=== PATIENT | male | born 1995 | race Caucasian/White ===

== ENCOUNTER 2017-04-06 15:59 | Emergency (ER) | payer BC, MEDICAID, OTHER ==
[2017-04-06] MEDS ORDERED: Ketorolac 60 MG/2 ML SDV IM ONE (16:28)
--- NOTE | 2017-04-06 16:45 | EDM.PDOC ---
ED HPI GENERAL MEDICAL PROBLEM - General Chief Complaint: Upper Extremity Injury/Pain Stated Complaint: PAIN RT HAND Time Seen by Provider: 04/06/17 16:09 Source of Information: Reports: Patient History Limitations: Reports: No Limitations - History of Present Illness INITIAL COMMENTS - FREE TEXT/NARRATIVE: Presents reporting that he was helping a friend move a metal box that weighed about 50 pounds last evening when the box accidentally dropped on his right wrist. He has some pain at the time but this morning was able to mow lawns with a push mower. 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 By the time he finished his mowing the pain in his right wrist was excruciating. He thus presents for evaluation. right hand Pain Score (Numeric/FACES): 8 - Related Data Allergies Allergy/AdvReac Type Severity Reaction Status Date / Time acetaminophen Allergy Hives Verified 04/06/17 16:36 Home Meds: Home Meds FLUoxetine [PROzac] 0 mg PO DAILY 04/06/17 [History] Past Medical History - Past Health History Medical/Surgical History: Denies Medical/Surgical History Musculoskeletal History: Reports: Other (See Below) Other Musculoskeletal History: phocomelia left arm Psychiatric History: Reports: Anxiety, Bipolar, Other (See Below) Other Psychiatric History: sleeping problems - Infectious Disease History Infectious Disease History: Reports: Chicken Pox Social & Family History - Family History Family Medical History: Noncontributory - Tobacco Use Smoking Status *Q: Current Every Day Smoker Years of Tobacco use: 7 Packs/Tins Daily: 1 Second Hand Smoke Exposure: Yes - Caffeine Use Caffeine Use: Reports: None - Recreational Drug Use Recreational Drug Use: No Drug Use in Last 12 Months: Yes Recreational Drug Type: Reports: Marijuana/Hashish Recreational Drug Use Frequency: Daily Review of Systems - Review of Systems Review Of Systems: ROS reveals no pertinent complaints other than HPI. ED EXAM, GENERAL - Physical Exam Exam: See Below Exam Limited By: No Limitations General Appearance: Alert, Mild Distress (due to wrist pain) Ears: Normal External Exam Nose: Normal Inspection Throat/Mouth: Normal Inspection Head: Atraumatic, Normocephalic Neck: Normal Inspection Respiratory/Chest: No Respiratory Distress, Lungs Clear, Normal Breath Sounds Cardiovascular: Normal Peripheral Pulses, Regular Rate, Rhythm, No Murmur GI/Abdominal: Soft Back Exam: Normal Inspection Extremities: Other (Right wrist with full ROM with hesitation due to pain. Full ROM of all digits except hesitation due to pain. No lesion, erythema, swelling, deformity. Exquisit tenderness. Congenitally absent/deformed left hand/wrist/forearm) Course - Vital Signs Last Recorded V/S: Last Vital Signs Temp 36.6 C 04/06/17 16:07 Pulse 120 H 04/06/17 16:07 Resp 22 H 04/06/17 16:07 BP 152/76 H 04/06/17 16:07 Pulse Ox 96 04/06/17 16:07 - Orders/Labs/Meds Meds: Medications Discontinued Medications Generic Name Dose Route Start Last Admin Trade Name Freq PRN Reason Stop Dose Admin Ketorolac Tromethamine 60 mg 04/06/17 16:28 04/06/17 16:36 Toradol IM 04/06/17 16:29 60 mg ONETIME ONE Administration Departure - Departure Time of Disposition: 17:26 Disposition: Home, Self-Care 01 Condition: Good Clinical Impression: Fx metacarpal Qualifiers: Encounter type: initial encounter Metacarpal bone: fifth Fracture type: closed Metacarpal location: base Fracture alignment: displaced Laterality: right Qualified Code(s): S62.316A - Displaced fracture of base of fifth metacarpal bone, right hand, initial encounter for closed fracture - Discharge Information Referrals: Kathy Kevin MD [Primary Care Provider] - [facility] [Outside] Forms: ED Department Discharge Additional Instructions: 1. Elevate right hand. Keep in splint and dry. Ice 20 minutes every 3-4 hours. 2. Call orthopedic clinic in am to be seen tomorrow. 3. Pain medication as needed--no driving or operating machinery.
--- NOTE | 2017-04-06 16:58 | CR ---
EXAMINATION: Right wrist HISTORY: Pain COMPARISON: None TECHNIQUE: 3 views FINDINGS/IMPRESSION: There is a minimally displaced intra-articular fracture involving the radial si de of the base of the fifth metatarsal extending into the CMC joint. Remaining osseous structures an d joint spaces appear intact. Bone mineralization is otherwise normal.
[2017-04-06 17:49] VITALS: BP 95/57
== END 2017-04-06 17:45 | disposition home or self-care (01) ==
LOC: MW.ED 15:59
DX: S62.316A Displaced fracture of base of fifth metacarpal bone, right hand, initial encounter for closed fracture (principal); F17.210 Nicotine dependence, cigarettes, uncomplicated; Z88.6 Allergy status to analgesic agent; Z79.899 Other long term (current) drug therapy; W20.8XXA Other cause of strike by thrown, projected or falling object, initial encounter
CPT/HCPCS: 73110; 96372; 99283; J1885

== ENCOUNTER 2017-05-02 18:37 | Emergency (ER) | payer MEDICAID ==
[2017-05-02] MEDS ORDERED: Ketorolac 30 MG/ML SDV IVPUSH ONE (19:14)
[2017-05-02] MEDS ORDERED: Sodium Chloride 0.9% 1,000 ML IV ONE ×2 (19:14→20:24)
[2017-05-02] MEDS ORDERED: Ondansetron 4 MG/2 ML SDV IVPUSH ONE (19:14)
--- NOTE | 2017-05-02 19:39 | EDM.PDOC ---
ED HPI GENERAL MEDICAL PROBLEM - General Chief Complaint: ENT Problem Stated Complaint: DIFFICULTY TALKING, FAINTING Time Seen by Provider: 05/02/17 18:38 Source of Information: Reports: Patient History Limitations: Reports: No Limitations - History of Present Illness INITIAL COMMENTS - FREE TEXT/NARRATIVE: History of present illness: [22-year-old male comes in complaining of periods of lightheadedness, and syncope. Patient indicates that he almost fell secondary to this patient also indicates that he slowly had a soreness and hoarseness in his throat that has evolved over the day.] Review of systems: As per history of present illness and below otherwise all systems reviewed and negative. Past medical history: As per history of present illness and as reviewed below otherwise noncontributory. Surgical history: As per history of present illness and as reviewed below otherwise noncontributory. Social history: No reported history of drug or alcohol abuse. Family history: As per history of present illness and as reviewed below otherwise noncontributory. Physical exam: HEENT: Atraumatic, normocephalic, pupils reactive, negative for conjunctival pallor or scleral icterus, mucous membranes moist with oral pharyngeal without white patchy exudate, throat clear, neck supple, nontender, trachea midline. Lungs: Clear to auscultation, breath sounds equal bilaterally, chest nontender. Heart: S1S2, regular, negative for clicks, rubs, or JVD. Abdomen: Soft, nondistended, nontender. Negative for masses or hepatosplenomegaly. Negative for costovertebral tenderness. Pelvis: Stable nontender. Genitourinary: Deferred. Rectal: Deferred. Extremities: Atraumatic, negative for cords or calf pain. Neurovascular unremarkable. Neuro: Awake, alert, oriented. Cranial nerves II through XII unremarkable. Cerebellum unremarkable. Motor and sensory unremarkable throughout. Exam nonfocal. Patient acknowledged that he had a significant amount of vomiting with nausea and dizziness. States that he has a couple met family members that have been ill with some sort of virus. After 2 L of normal saline patient's heart rate and blood pressure returned to normal limits Diagnostics: [CBC, CMP, lipase, amylase, troponin] Therapeutics: [IV fluid, Toradol] Impression: [Pharyngitis, dehydration, bradycardia] Plan: [Antibiotics follow-up with PCP] Definitive disposition and diagnosis as appropriate pending reevaluation and review of above. Throat Pain Score (Numeric/FACES): 7 - Related Data Allergies Allergy/AdvReac Type Severity Reaction Status Date / Time acetaminophen Allergy Hives Verified 05/02/17 18:50 Home Meds: Home Meds Amoxicillin/Potassium Clav [Augmentin 875-125 Tablet] 1 each PO BID #14 tablet 05/02/17 [Rx] Past Medical History - Past Health History Medical/Surgical History: Denies Medical/Surgical History Musculoskeletal History: Reports: Other (See Below) Other Musculoskeletal History: phocomelia left arm Psychiatric History: Reports: Anxiety, Bipolar, Other (See Below) Other Psychiatric History: sleeping problems - Infectious Disease History Infectious Disease History: Reports: Chicken Pox Social & Family History - Family History Family Medical History: Noncontributory - Tobacco Use Smoking Status *Q: Current Status Unknown Years of Tobacco use: 7 Packs/Tins Daily: 1 Second Hand Smoke Exposure: Yes - Caffeine Use Caffeine Use: Reports: None - Recreational Drug Use Recreational Drug Use: No Drug Use in Last 12 Months: Yes Recreational Drug Type: Reports: Marijuana/Hashish Recreational Drug Use Frequency: Daily ED ROS GENERAL - Review of Systems Review Of Systems: See Below (See history of present illness) ED EXAM, DIZZINESS - Physical Exam Exam: See Below (The history of present illness) Course - Vital Signs Last Recorded V/S: Last Vital Signs Temp 36.2 C 05/02/17 20:41 Pulse 60 05/02/17 20:41 Resp 17 05/02/17 20:41 BP 112/55 L 05/02/17 20:41 Pulse Ox 99 05/02/17 20:41 - Orders/Labs/Meds Orders: Active Orders 24 hr Category Date Time Status EKG Documentation Completion [RC] STAT Care 05/02/17 19:00 Active Labs: Laboratory Tests 05/02/17 05/02/17 05/02/17 Range/Units 19:20 19:20 19:20 WBC 9.74 (4.0-11.0) K/uL RBC 5.20 (4.50-5.90) M/uL Hgb 16.0 (13.0-17.0) g/dL Hct 45.6 (38.0-50.0) % MCV 87.7 (80.0-98.0) fL MCH 30.8 (27.0-32.0) pg MCHC 35.1 (31.0-37.0) g/dL RDW Std Deviation 42.4 (28.0-62.0) fl RDW Coeff of Mike 13 (11.0-15.0) % Plt Count 262 (150-400) K/uL MPV 9.40 (7.40-12.00) fL Neut % (Auto) 71.6 (48.0-80.0) % Lymph % (Auto) 22.1 (16.0-40.0) % [place] % (Auto) 5.4 (0.0-15.0) % Eos % (Auto) 0.6 (0.0-7.0) % Baso % (Auto) 0.3 (0.0-1.5) % Neut # (Auto) 7.0 H (1.4-5.7) K/uL Lymph # (Auto) 2.2 (0.6-2.4) K/uL [place] # (Auto) 0.5 (0.0-0.8) K/uL Eos # (Auto) 0.1 (0.0-0.7) K/uL Baso # (Auto) 0.0 (0.0-0.1) K/uL Nucleated RBC % 0.0 /100WBC Nucleated RBCs # 0 K/uL Sodium 138 (136-146) mmol/L Potassium 4.2 (3.5-5.1) mmol/L Chloride 103 (98-110) mmol/L Carbon Dioxide 27 (21-31) mmol/L BUN 10 (6.0-23.0) mg/dL Creatinine 0.8 (0.6-1.5) mg/dL Est Cr Clr Drug Dosing 146.06 mL/min Estimated GFR (MDRD) > 60.0 ml/min Glucose 89 (60-110) mg/dL Calcium 9.6 (8.8-10.8) mg/dL Total Bilirubin 0.5 (0.1-1.5) mg/dL AST 20 (5-40) IU/L ALT 14 (8-54) IU/L Alkaline Phosphatase 74 (40-150) Troponin I < 0.10 (0.0-0.29) NG/ML Total Protein 7.3 (6.0-8.0) g/dL Albumin 4.1 (3.5-5.0) g/dL Globulin 3.2 (2.0-3.5) g/dL Albumin/Globulin Ratio 1.3 (1.3-2.8) Meds: Medications Discontinued Medications Generic Name Dose Route Start Last Admin Trade Name Shane PRN Reason Stop Dose Admin Amoxicillin/Clavulanate Potassium 1 tab 05/02/17 21:30 Augmentin 875 Mg/125 Mg PO 05/02/17 21:31 ONETIME ONE Sodium Chloride 1,000 mls @ 999 mls/hr 05/02/17 19:14 05/02/17 19:24 Normal Saline IV 05/02/17 20:14 999 mls/hr STAT ONE Administration Sodium Chloride 1,000 mls @ 999 mls/hr 05/02/17 20:24 05/02/17 20:25 Normal Saline IV 05/02/17 21:24 999 mls/hr .Bolus ONE Administration Ketorolac Tromethamine 30 mg 05/02/17 19:14 05/02/17 19:36 Toradol IVPUSH 05/02/17 19:15 30 mg ONETIME ONE Administration Ondansetron HCl 4 mg 05/02/17 19:14 05/02/17 19:25 Zofran IVPUSH 05/02/17 19:15 4 mg ONETIME ONE Administration Departure - Departure Time of Disposition: 21:32 Disposition: Home, Self-Care 01 Condition: Good Clinical Impression: Pharyngitis - Discharge Information Prescriptions: Amoxicillin/Potassium Clav [Augmentin 875-125 Tablet] 1 each PO BID #14 tablet Forms: ED Department Discharge Additional Instructions: The following information is given to patients seen in the emergency department who are being discharged to home. This information is to outline your options for follow-up care. We provide all patients seen in our emergency department with a follow-up referral. The need for follow-up, as well as the timing and circumstances, are variable depending upon the specifics of your emergency department visit. If you don't have a primary care physician on staff, we will provide you with a referral. We always advise you to contact your personal physician following an emergency department visit to inform them of the circumstance of the visit and for follow-up with them and/or the need for any referrals to a consulting specialist. The emergency department will also refer you to a specialist when appropriate. This referral assures that you have the opportunity for follow-up care with a specialist. All of these measure are taken in an effort to provide you with optimal care, which includes your follow-up. Under all circumstances we always encourage you to contact your private physician who remains a resource for coordinating your care. When calling for follow-up care, please make the office aware that this follow-up is from your recent emergency room visit. If for any reason you are refused follow-up, please contact the [facility] Emergency Department at and asked to speak to the emergency department charge nurse. Take medication as directed Try to hydrate as much as possible as discussed Follow-up with PCP 1-2 days Return to ED as needed as discussed
[2017-05-02 19:51] LABS: CHLORIDE,CL 103 mmol/L (98-110); SODIUM,NA 138 mmol/L (136-146)
[2017-05-02] MEDS ORDERED: Amoxicillin/Clavulanate K 875-125 MG Tab PO ONE (21:30)
[2017-05-02 21:56] VITALS: BP 125/62
== END 2017-05-02 21:53 | disposition home or self-care (01) ==
LOC: MW.ED 18:37
DX: E86.0 Dehydration (principal); J02.9 Acute pharyngitis, unspecified; R00.1 Bradycardia, unspecified; F41.9 Anxiety disorder, unspecified; Z88.6 Allergy status to analgesic agent; W19.XXXA Unspecified fall, initial encounter
CPT/HCPCS: 36415; 80053; 84484; 85025; 93005; 96361; 96374; 96375; 99284; A9270; J1885; J2405; J7040; 99283

== ENCOUNTER 2017-05-09 14:08 | Emergency (ER) | payer MEDICAID ==
--- NOTE | 2017-05-09 14:11 | EDM.PDOC ---
ED HPI GENERAL MEDICAL PROBLEM - General Stated Complaint: POPPED HAND Time Seen by Provider: 05/09/17 14:30 Source of Information: Reports: Patient History Limitations: Reports: No Limitations - History of Present Illness INITIAL COMMENTS - FREE TEXT/NARRATIVE: History of present illness: []Patient sustained a fracture to the base of his fifth metacarpal last month and was in a hand splint that he removed after he was told he could take it off in 4-6 weeks. He will be injured his hand today and felt a pop. Patient states he threw a splint does not have another one at home. Review of systems: As per history of present illness and below otherwise all systems reviewed and negative. Past medical history: As per history of present illness and as reviewed below otherwise noncontributory. Surgical history: As per history of present illness and as reviewed below otherwise noncontributory. Social history: No reported history of drug or alcohol abuse. Family history: As per history of present illness and as reviewed below otherwise noncontributory. Physical exam: General: Well developed, well nourished in NAD HEENT: Atraumatic, normocephalic, pupils reactive, negative for conjunctival pallor or scleral icterus, mucous membranes moist, throat clear, neck supple, nontender, trachea midline. Lungs: Clear to auscultation, breath sounds equal bilaterally, chest nontender. Heart: S1S2, regular, negative for clicks, rubs, or JVD. Abdomen: Soft, nondistended, nontender. Negative for masses or hepatosplenomegaly. Negative for costovertebral tenderness. Pelvis: Stable nontender. Genitourinary: Deferred. Rectal: Deferred. Extremities: Tenderness the base of the fifth metacarpal swelling, erythema or open wounds. Distal capillary refill is brisk. Sensation is intact., negative for cords or calf pain. Neurovascular unremarkable. Neuro: Awake, alert, oriented. Cranial nerves II through XII unremarkable. Cerebellum unremarkable. Motor and sensory unremarkable throughout. Exam nonfocal. Diagnostics: []X-ray hand shows no change from previous Therapeutics: []Hand splint given Impression: []fracture base of the fifth metacarpal Plan: []Motrin, Ice, elevate wear splint follow-up with Dr. Hutton in plastics clinic Definitive disposition and diagnosis as appropriate pending reevaluation and review of above. Right Wrist Pain Score (Numeric/FACES): 6 - Related Data Allergies Allergy/AdvReac Type Severity Reaction Status Date / Time acetaminophen Allergy Hives Verified 05/02/17 18:50 Home Meds: Home Meds . [No Known Home Meds] 05/09/17 [History] Past Medical History - Past Health History Medical/Surgical History: Denies Medical/Surgical History Musculoskeletal History: Reports: Other (See Below) Other Musculoskeletal History: phocomelia left arm Psychiatric History: Reports: Anxiety, Bipolar, Other (See Below) Other Psychiatric History: sleeping problems - Infectious Disease History Infectious Disease History: Reports: Chicken Pox Social & Family History - Family History Family Medical History: Noncontributory - Tobacco Use Smoking Status *Q: Current Status Unknown Years of Tobacco use: 7 Packs/Tins Daily: 1 Second Hand Smoke Exposure: Yes - Caffeine Use Caffeine Use: Reports: None - Recreational Drug Use Recreational Drug Use: No Drug Use in Last 12 Months: Yes Recreational Drug Type: Reports: Marijuana/Hashish Recreational Drug Use Frequency: Daily Review of Systems - Review of Systems Review Of Systems: See Below ED EXAM, GENERAL - Physical Exam Exam: See Below (See history of present illness) Course - Vital Signs Last Recorded V/S: Last Vital Signs Temp 36.0 C 05/09/17 14:20 Pulse 84 05/09/17 14:20 Resp 16 05/09/17 14:20 BP 134/67 05/09/17 14:20 Pulse Ox 97 05/09/17 14:20 - Orders/Labs/Meds Orders: Active Orders 24 hr Category Date Time Status Splinting [RC] ASDIRECTED Care 05/09/17 15:40 Ordered Hand 2V Rt [CR] Stat Exams 05/09/17 14:21 Taken Departure - Departure Time of Disposition: 15:44 Disposition: Home, Self-Care 01 Condition: Good Clinical Impression: Fracture of fifth metacarpal bone of right hand Qualifiers: Encounter type: subsequent encounter Fracture type: closed Metacarpal location : base Fracture alignment: nondisplaced Fracture healing: with delayed healing Qualified Code(s): S62.346G - Nondisplaced fracture of base of fifth metacarpal bone, right hand, subsequent encounter for fracture with delayed healing - Discharge Information Referrals: Kathy Kevin MD [Primary Care Provider] - Forms: ED Department Discharge Additional Instructions: The following information is given to patients seen in the emergency department who are being discharged to home. This information is to outline your options for follow-up care. We provide all patients seen in our emergency department with a follow-up referral. The need for follow-up, as well as the timing and circumstances, are variable depending upon the specifics of your emergency department visit. If you don't have a primary care physician on staff, we will provide you with a referral. We always advise you to contact your personal physician following an emergency department visit to inform them of the circumstance of the visit and for follow-up with them and/or the need for any referrals to a consulting specialist. The emergency department will also refer you to a specialist when appropriate. This referral assures that you have the opportunity for follow-up care with a specialist. All of these measure are taken in an effort to provide you with optimal care, which includes your follow-up. Under all circumstances we always encourage you to contact your private physician who remains a resource for coordinating your care. When calling for follow-up care, please make the office aware that this follow-up is from your recent emergency room visit. If for any reason you are refused follow-up, please contact the [facility] Emergency Department at and asked to speak to the emergency department charge nurse. Motrin, ice, elevate and wear hand splint follow-up with plastics clinic [facility] - Plastic Surgery Professional [address], [address] [place] [address] - My Orders Last 24 Hours: My Active Orders 05/09/17 14:21 Hand 2V Rt [CR] Stat 05/09/17 15:40 Splinting [RC] ASDIRECTED - Assessment/Plan Last 24 Hours: My Active Orders 05/09/17 14:21 Hand 2V Rt [CR] Stat 05/09/17 15:40 Splinting [RC] ASDIRECTED
[2017-05-09 16:02] VITALS: BP 116/55
--- NOTE | 2017-05-10 13:11 | CR ---
EXAM DATE: 05/09/17 PATIENT'S AGE: 22 Patient: SAMMY COLE Facility: [place], [place] Site . Site : [id number] Study: XRay Extremity Right [id number] hand-05/09/2017 2:41:59 PM Ordering Physician: Doctor White Final Report: INDICATION: Right hand pain. Injury. History of fracture right hand. COMPARISON: 04/06/2017. FINDINGS: AP and lateral views of the right hand were obtained. Again noted is the fracture in the base of the 5th metacarpal bone unchanged in appearance from the previous study. The fracture line is still evident. There is no new fracture seen or dislocation. IMPRESSION: 1. Stable appearing fracture base of the 5th metacarpal bone. 2. No new fracture seen. Dictated by Jose Pate MD @ 05/09/2017 3:05:51 PM Dictated by: Jose Pate MD @ 05/09/2017 15:06:08 (Electronic Signature) Report Signed by Proxy. ALICIA
== END 2017-05-09 16:00 | disposition home or self-care (01) ==
LOC: MW.ED 14:08
DX: S62.346G Nondisplaced fracture of base of fifth metacarpal bone, right hand, subsequent encounter for fracture with delayed healing (principal); Z88.6 Allergy status to analgesic agent; X58.XXXD Exposure to other specified factors, subsequent encounter
CPT/HCPCS: 73120-26-RT; 73120-RT; 99283

== ENCOUNTER 2017-05-31 05:36 | Emergency (ER) | payer MEDICAID ==
--- NOTE | 2017-05-31 05:47 | EDM.PDOC ---
ED HPI GENERAL MEDICAL PROBLEM - General Stated Complaint: HEART IS RACING Time Seen by Provider: 05/31/17 05:45 - History of Present Illness INITIAL COMMENTS - FREE TEXT/NARRATIVE: HISTORY AND PHYSICAL: History of present illness: Patient's a 22-year-old male who presents with a concern of palpitations after having taken a gazm-tnn-citawio supplement to increase his metabolism denies chest pain nausea vomiting diaphoresis or other complaints Review of systems: As per history of present illness and below otherwise all systems reviewed and negative. Past medical history: As per history of present illness and as reviewed below otherwise noncontributory. Surgical history: As per history of present illness and as reviewed below otherwise noncontributory. Social history: No reported history of drug or alcohol abuse. Family history: As per history of present illness and as reviewed below otherwise noncontributory. Physical exam: HEENT: Atraumatic, normocephalic, pupils reactive, negative for conjunctival pallor or scleral icterus, mucous membranes moist, throat clear, neck supple, nontender, trachea midline. Lungs: Clear to auscultation, breath sounds equal bilaterally, chest nontender. Heart: S1S2, regular, negative for clicks, rubs, or JVD. Abdomen: Soft, nondistended, nontender. Negative for masses or hepatosplenomegaly. Negative for costovertebral tenderness. Pelvis: Stable nontender. Genitourinary: Deferred. Rectal: Deferred. Extremities: Atraumatic, negative for cords or calf pain. Neurovascular unremarkable. Neuro: Awake, alert, oriented. Cranial nerves II through XII unremarkable. Cerebellum unremarkable. Motor and sensory unremarkable throughout. Exam nonfocal. Diagnostics: EKG Therapeutics: None Impression: #1 palpitations Definitive disposition and diagnosis as appropriate pending reevaluation and review of above. - Related Data Allergies Allergy/AdvReac Type Severity Reaction Status Date / Time acetaminophen Allergy Hives Verified 05/02/17 18:50 Home Meds: Home Meds . [No Known Home Meds] 05/09/17 [History] Past Medical History - Past Health History Medical/Surgical History: Denies Medical/Surgical History Musculoskeletal History: Reports: Other (See Below) Other Musculoskeletal History: phocomelia left arm Psychiatric History: Reports: Anxiety, Bipolar, Other (See Below) Other Psychiatric History: sleeping problems - Infectious Disease History Infectious Disease History: Reports: Chicken Pox Social & Family History - Family History Family Medical History: Noncontributory - Tobacco Use Smoking Status *Q: Current Status Unknown Years of Tobacco use: 7 Packs/Tins Daily: 1 Used Tobacco, but Quit: No Second Hand Smoke Exposure: Yes - Caffeine Use Caffeine Use: Reports: None - Alcohol Use Days Per Week of Alcohol Use: 2 Number of Drinks Per Day: 4 Total Drinks Per Week: 8 - Recreational Drug Use Recreational Drug Use: No Drug Use in Last 12 Months: Yes Recreational Drug Type: Reports: Marijuana/Hashish Recreational Drug Use Frequency: Daily ED ROS GENERAL - Review of Systems Review Of Systems: ROS reveals no pertinent complaints other than HPI. ED EXAM, GENERAL - Physical Exam Exam: See Below (See dictation) Course - Orders/Labs/Meds Orders: Active Orders 24 hr Category Date Time Status EKG 12 Lead [EKG Documentation Completion] [RC] STAT Care 05/31/17 05:41 Active Departure - Departure Time of Disposition: 05:47 Disposition: Home, Self-Care 01 Condition: Good Clinical Impression: Palpitations - Discharge Information Referrals: PCP,None [Primary Care Provider] - Additional Instructions: The following information is given to patients seen in the emergency department who are being discharged to home. This information is to outline your options for follow-up care. We provide all patients seen in our emergency department with a follow-up referral. The need for follow-up, as well as the timing and circumstances, are variable depending upon the specifics of your emergency department visit. If you don't have a primary care physician on staff, we will provide you with a referral. We always advise you to contact your personal physician following an emergency department visit to inform them of the circumstance of the visit and for follow-up with them and/or the need for any referrals to a consulting specialist. The emergency department will also refer you to a specialist when appropriate. This referral assures that you have the opportunity for followup care with a specialist. All of these measure are taken in an effort to provide you with optimal care, which includes your followup. Under all circumstances we always encourage you to contact your private physician who remains a resource for coordinating your care. When calling for followup care, please make the office aware that this follow-up is from your recent emergency room visit. If for any reason you are refused follow-up, please contact the [facility] emergency department at and asked to speak to the emergency department charge nurse. [facility] [address] [place] [phone] Avoid caffeinated beverages energy drinks or any other type supplements as discussed follow-up primary medical doctor and/or clinic above return as needed as discussed - My Orders Last 24 Hours: My Active Orders 05/31/17 05:41 EKG 12 Lead [EKG Documentation Completion] [RC] STAT - Assessment/Plan Last 24 Hours: My Active Orders 05/31/17 05:41 EKG 12 Lead [EKG Documentation Completion] [RC] STAT
[2017-05-31 06:12] VITALS: BP 137/74
== END 2017-05-31 06:09 | disposition home or self-care (01) ==
LOC: MW.ED 05:36
DX: R00.2 Palpitations (principal); Z88.6 Allergy status to analgesic agent
CPT/HCPCS: 93005; 99283; 99284-25

== ENCOUNTER 2018-01-06 01:04 | Emergency (ER) | payer MEDICAID ==
[2018-01-06] MEDS ORDERED: Acetaminophen 500 MG Tab PO ONE (01:26)
--- NOTE | 2018-01-06 02:12 | EDM.PDOC ---
ED HPI GENERAL MEDICAL PROBLEM - General Chief Complaint: Back Pain or Injury Stated Complaint: BACK PAIN Time Seen by Provider: 01/06/18 02:08 - History of Present Illness INITIAL COMMENTS - FREE TEXT/NARRATIVE: HISTORY AND PHYSICAL: History of present illness: [id number] male presents returned low back pain denies trauma denies numbness weakness incontinence or retention of bowel or bladder Review of systems: As per history of present illness and below otherwise all systems reviewed and negative. Past medical history: As per history of present illness and as reviewed below otherwise noncontributory. Surgical history: As per history of present illness and as reviewed below otherwise noncontributory. Social history: No reported history of drug or alcohol abuse. Family history: As per history of present illness and as reviewed below otherwise noncontributory. Physical exam: HEENT: Atraumatic, normocephalic, pupils reactive, negative for conjunctival pallor or scleral icterus, mucous membranes moist, throat clear, neck supple, nontender, trachea midline. Lungs: Clear to auscultation, breath sounds equal bilaterally, chest nontender. Heart: S1S2, regular, negative for clicks, rubs, or JVD. Abdomen: Soft, nondistended, nontender. Negative for masses or hepatosplenomegaly. Negative for costovertebral tenderness. Pelvis: Stable nontender. Genitourinary: Deferred. Rectal: Deferred. Extremities: Atraumatic, negative for cords or calf pain. Neurovascular unremarkable. Neuro: Awake, alert, oriented. Cranial nerves II through XII unremarkable. Cerebellum unremarkable. Motor and sensory unremarkable throughout. Exam nonfocal. Back: Patient no vertebral body or point tenderness Diagnostics: UA x-ray LS-spine Therapeutics: Tylenol 1 g Impression: #1 back pain Definitive disposition and diagnosis as appropriate pending reevaluation and review of above. low back pain Pain Score (Numeric/FACES): 7 - Related Data Allergies Allergy/AdvReac Type Severity Reaction Status Date / Time ibuprofen Allergy Hives Verified 01/06/18 01:13 Home Meds: Home Meds . [No Known Home Meds] 05/09/17 [History] Past Medical History - Past Health History Medical/Surgical History: Denies Medical/Surgical History HEENT History: Reports: Other (See Below) Other HEENT History: missing teeth Cardiovascular History: Reports: None Respiratory History: Reports: None Gastrointestinal History: Reports: None Genitourinary History: Reports: None Musculoskeletal History: Reports: Other (See Below) Other Musculoskeletal History: phocomelia left arm Neurological History: Reports: None Psychiatric History: Reports: Anxiety, Bipolar, Suicidal Ideation, Other (See Below) Other Psychiatric History: sleeping problems, cutting Endocrine/Metabolic History: Reports: None Hematologic History: Reports: None Immunologic History: Reports: None Oncologic (Cancer) History: Reports: None Dermatologic History: Reports: None - Infectious Disease History Infectious Disease History: Reports: Chicken Pox Social & Family History - Family History Family Medical History: Noncontributory - Tobacco Use Smoking Status *Q: Current Every Day Smoker Years of Tobacco use: 1 Packs/Tins Daily: 9 Used Tobacco, but Quit: No Second Hand Smoke Exposure: Yes - Caffeine Use Caffeine Use: Reports: None - Alcohol Use Days Per Week of Alcohol Use: 2 Number of Drinks Per Day: 4 Total Drinks Per Week: 8 - Recreational Drug Use Recreational Drug Use: No Drug Use in Last 12 Months: Yes Recreational Drug Type: Reports: Heroin Recreational Drug Use Frequency: Not Used In Over 5 Months ED ROS GENERAL - Review of Systems Review Of Systems: ROS reveals no pertinent complaints other than HPI. ED EXAM, GENERAL - Physical Exam Exam: See Below (See dictation) Course - Vital Signs Last Recorded V/S: Last Vital Signs Temp 36.6 C 01/06/18 01:13 Pulse 86 01/06/18 01:13 Resp 18 01/06/18 01:13 BP 104/77 01/06/18 01:13 Pulse Ox 97 01/06/18 01:13 - Orders/Labs/Meds Orders: Active Orders 24 hr Category Date Time Status Lumbar Spine 2 or 3V [CR] Stat Exams 01/06/18 01:21 Taken UA W/MICROSCOPIC [URIN] Stat Lab 01/06/18 01:28 Ordered Labs: Laboratory Tests 01/06/18 Range/Units 01:28 Urine Color YELLOW Urine Appearance CLEAR Urine pH 6.0 (5.0-8.0) Ur Specific [place] 1.015 (1.001-1.035) Urine Protein NEGATIVE (NEGATIVE) mg/dL Urine Glucose (UA) NEGATIVE (NEGATIVE) mg/dL Urine Ketones NEGATIVE (NEGATIVE) mg/dL Urine Occult Blood NEGATIVE (NEGATIVE) Urine Nitrite NEGATIVE (NEGATIVE) Urine Bilirubin NEGATIVE (NEGATIVE) Urine Urobilinogen 0.2 (<2.0) EU/dL Ur Leukocyte Esterase NEGATIVE (NEGATIVE) Urine RBC NONE SEEN (0-2/HPF) Urine WBC NONE SEEN (0-5/HPF) Ur Epithelial Cells NOT SEEN (NONE-FEW) Urine Bacteria RARE (NEGATIVE) Meds: Medications Discontinued Medications Generic Name Dose Route Start Last Admin Trade Name Shane PRN Reason Stop Dose Admin Acetaminophen 1,000 mg 01/06/18 01:26 01/06/18 01:37 Tylenol Extra Strength PO 01/06/18 01:27 1,000 mg ONETIME ONE Administration Departure - Departure Time of Disposition: 02:11 Disposition: Home, Self-Care 01 Condition: Good Clinical Impression: Back pain - Discharge Information Referrals: PCP,None [Primary Care Provider] - Care Plan Goals: The following information is given to patients seen in the emergency department who are being discharged to home. This information is to outline your options for follow-up care. We provide all patients seen in our emergency department with a follow-up referral. The need for follow-up, as well as the timing and circumstances, are variable depending upon the specifics of your emergency department visit. If you don't have a primary care physician on staff, we will provide you with a referral. We always advise you to contact your personal physician following an emergency department visit to inform them of the circumstance of the visit and for follow-up with them and/or the need for any referrals to a consulting specialist. The emergency department will also refer you to a specialist when appropriate. This referral assures that you have the opportunity for followup care with a specialist. All of these measure are taken in an effort to provide you with optimal care, which includes your followup. Under all circumstances we always encourage you to contact your private physician who remains a resource for coordinating your care. When calling for followup care, please make the office aware that this follow-up is from your recent emergency room visit. If for any reason you are refused follow-up, please contact the [facility] emergency department at and asked to speak to the emergency department charge nurse. [facility] [address] [place] [phone] Tylenol as directed follow-up primary medical doctor call to schedule appointment return as needed as discussed - My Orders Last 24 Hours: My Active Orders 01/06/18 01:21 Lumbar Spine 2 or 3V [CR] Stat 01/06/18 01:28 UA W/MICROSCOPIC [URIN] Stat - Assessment/Plan Last 24 Hours: My Active Orders 01/06/18 01:21 Lumbar Spine 2 or 3V [CR] Stat 01/06/18 01:28 UA W/MICROSCOPIC [URIN] Stat
[2018-01-06 02:20] VITALS: BP 100/50
--- NOTE | 2018-01-06 10:10 | CR ---
EXAM DATE: 01/06/18 PATIENT'S AGE: 22 Patient: SAMMY COLE Facility: [place], [place] Site . Site : 1996 Study: XRay Spine Lumbar [id number]/12/2018 1:41:22 AM Ordering Physician: Doctor White Final Report: INDICATION: LBP x 1year, TECHNIQUE: Lumbar spine 3 view COMPARISON: None FINDINGS: Bones: No fractures or significant bone lesions. 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 Disc spaces and facets are unremarkable. Soft tissues: Unremarkable. IMPRESSION: No acute abnormality of the lumbar spine. Dictated by Ugo Ramos MD @ 01/06/2018 1:46:07 AM Dictated by: Ugo Ramos MD @ 01/06/2018 01:46:27 (Electronic Signature) Report Signed by Proxy. [facility]y
== END 2018-01-06 02:15 | disposition home or self-care (01) ==
LOC: MW.ED 01:04
DX: M54.5 Low back pain (principal); F17.210 Nicotine dependence, cigarettes, uncomplicated; Z88.6 Allergy status to analgesic agent
CPT/HCPCS: 72100; 81001; 99283; A9270

== ENCOUNTER 2021-01-10 15:56 | Emergency (ER) | payer SELFPAY ==
--- NOTE | 2021-01-10 16:11 | EDM.PDOC ---
ED HPI GENERAL MEDICAL PROBLEM - General Chief Complaint: Genitourinary Problem Stated Complaint: KIDNEY PAIN Time Seen by Provider: 01/10/21 15:57 Source of Information: Reports: Patient History Limitations: Reports: No Limitations - History of Present Illness INITIAL COMMENTS - FREE TEXT/NARRATIVE: HISTORY AND PHYSICAL: History of present illness: The patient is a 25-year-old male who presents to the emergency department with complaints of bilateral flank pain, stating "I feel like my kidneys are messing up", the patient reports that he has dysuria and frequency. He denies any abnormal penial discharge. He states this has been going on for "months". The patient then stated that he was having constipation difficulties and when he had a stool it was liquid with rectal bleeding. He states the constipation started after a group of friends stuck a "metal weed pipe" up his rectum. He states that he was passed out when this happened but apparently saw a video of it. He has been watching over the expulsion of the pipe but has not seen. He states that he had used a colonoscopy prep over 4 weeks ago and about 3 weeks ago took laxatives every day for 7 days. He states the blood is bright red and he can see specks on his stool. The patient states after drinking alcohol his constipation and gas becomes worse. Patient states that he is concerned due to his previous drug use of IV heroin. He has been clean for over 4 months and is now in a peer program. He had 1 relapse about 3 months ago. The patient states he is still able to work without restrictions. He does odd jobs and yard work. Review of systems: As per history of present illness and below otherwise all systems reviewed and negative. Past medical history: As per history of present illness and as reviewed below otherwise noncontributory. Surgical history: As per history of present illness and as reviewed below otherwise noncontributory. Social history: See social history for further information Family history: As per history of present illness and as reviewed below otherwise noncontributory. Physical exam: General: Well developed and well nourished. Alert and orientated x 3. Nontoxic in appearance and in no acute distress. Vital signs are stable and have been reviewed by me. Nursing notes were reviewed. HEENT: Atraumatic, normocephalic, pupils equal and reactive bilaterally, negative for conjunctival pallor or scleral icterus, mucous membranes moist, TMs normal bilaterally, throat clear, neck supple, nontender, trachea midline. No drooling or trismus noted. No meningeal signs. No hot potato voice noted. Lungs: Clear to auscultation bilaterally. No wheezes, rales, or rhonchi. Chest nontender. Normal work of breathing, no accessory muscles used. Heart: S1S2, tachycardia and regualr rhythm without overt murmur, gallops, or rubs. No JVD. No peripheral edema Abdomen: Soft, nondistended, tender bilateral flank. Normoactive bowel sounds. Negative for masses or costovertebral tenderness. Genitourinary/Rectal: Rectum without external hemorrhoids. Skin: Intact, warm, dry. noted bilateral leg redness. No lesions or rashes noted. Hematologic: No petechiae or purpra. Mucosa appropriate color and normal nail bed color and refill. Extremities: Atraumatic, moves all extremities per self without difficulty or deficits, negative for cords or calf pain. Neurovascular unremarkable. Neuro: Awake, alert, oriented. Cranial nerves II through XII unremarkable. Cerebellum unremarkable. Motor and sensory unremarkable throughout. Exam nonfocal. Psychiatric: Anxious. Normal thought process. Answering questions appropriately. Notes: *This patient was seen and evaluated during the 2019 SARS-CoV-2 novel coronavirus pandemic period. Community viral transmission is ongoing at time of this encounter and the emergency department is operating under pandemic response procedures. After discussion and exam the patient is agreeable to lab work and imaging. Rectum exam done with nurse at bedside. Urine is negative. CBC and CMP are unremarkable. Waiting on urine for chlamydia/gonorrhea. Patient is sleeping and upon waking stated that he was comfortable and asleep. 2V Flat Upright impression: 1. Nonobstructive bowel gas pattern. No gas is seen in the rectum. 2. No radiopaque foreign body identified. Patient to be discharged. I have talked with the patient about today's findings, in addition to providing specific details for plan of care. Reassessment at the time of disposition demonstrates that the patient is in no acute distress. The patient is stable for discharge, counseling was provided and we discussed in great detail signs and symptoms that would prompt them to return to the Emergency Department. Medication, follow up and supportive care measures were reviewed and discussed. Voices understanding and is agreeable to plan of care. Denies any further questions or concerns at this time. Diagnostics: CBC, CMP, UA, Chlamydia/gonorrhea, Flat & Upright Impression: Flank pain Plan: 1. You were evaluated today on an emergent basis. Your complaint of bilateral flank pain, chronic constipation, and metal weed pipe insertion into your rectum were evaluated with lab work, imaging and an exam. Your lab work did not show any type of infection. Your kidney function is normal. Your x-ray did not show any foreign body anywhere in your colon. You need to practice healthy bowel habits, such as, eating fiber, drinking fluids, and getting enough exercise. Try not to use laxatives, instead use a fiber additive such as Metamucil. You can use Miralax for chronic constipation two the three times per week. If you continue to have liquid stools with flecks of blood you will need to follow up with a Type Caster for a possible colonoscopy. 2. You can alternate Tylenol and ibuprofen as needed for pain and fever management. 3. We encourage you to follow up with your primary care provider and/or recommended specialist in the next few days for re-evaluation and further care/management. 4. If your symptoms should worsen, new symptoms develop or any of the signs and symptoms we discussed should arise please return to the emergency room or call 911 (if needed). Definitive disposition and diagnosis as appropriate pending reevaluation and review of above. kidney Pain Score (Numeric/FACES): 7 - Related Data Allergies Allergy/AdvReac Type Severity Reaction Status Date / Time ibuprofen Allergy Hives Verified 01/06/18 01:13 Home Meds: Home Meds . [No Known Home Meds] 05/09/17 [History] Past Medical History - Past Health History Medical/Surgical History: Denies Medical/Surgical History HEENT History: Reports: Other (See Below) Other HEENT History: missing teeth Cardiovascular History: Reports: None Respiratory History: Reports: None Gastrointestinal History: Reports: None Genitourinary History: Reports: None Musculoskeletal History: Reports: Other (See Below) Other Musculoskeletal History: phocomelia left arm Neurological History: Reports: None Psychiatric History: Reports: Anxiety, Bipolar, Suicidal Ideation, Other (See Below) Other Psychiatric History: sleeping problems, cutting Endocrine/Metabolic History: Reports: None Hematologic History: Reports: None Immunologic History: Reports: None Oncologic (Cancer) History: Reports: None Dermatologic History: Reports: None - Infectious Disease History Infectious Disease History: Reports: Chicken Pox Social & Family History - Family History Family Medical History: No Pertinent Family History - Caffeine Use Caffeine Use: Reports: None ED ROS GENERAL - Review of Systems Review Of Systems: Comprehensive ROS is negative, except as noted in HPI. ED EXAM, RENAL/ - Physical Exam Exam: See Below (See dictation) Course - Vital Signs Last Recorded V/S: Last Vital Signs Temp 98.6 F 01/10/21 16:17 Pulse 95 01/10/21 18:11 Resp 16 01/10/21 18:11 BP 106/40 L 01/10/21 18:11 Pulse Ox 95 01/10/21 18:11 - Orders/Labs/Meds Orders: Active Orders 24 hr Category Date Time Status CHLAMYDIA AND GONORRHEA BY TMA Stat Lab 01/10/21 17:38 Received Sodium Chloride 0.9% [Saline Flush] Med 01/10/21 16:32 Active 10 ml FLUSH ASDIRECTED PRN Sodium Chloride 0.9% [Saline Flush] Med 01/10/21 16:32 Active 2.5 ml FLUSH ASDIRECTED PRN Saline Lock Insert [OM.PC] Stat Oth 01/10/21 16:32 Ordered Medication Orders Sodium Chloride (Sodium Chloride 0.9% 10 Ml Syringe) 10 ml FLUSH ASDIRECTED PRN PRN Reason: Keep Vein Open Last Admin: 01/10/21 16:48 Dose: 10 ml Documented by: EZIO Sodium Chloride (Sodium Chloride 0.9% 2.5 Ml Syringe) 2.5 ml FLUSH ASDIRECTED PRN PRN Reason: Keep Vein Open Last Admin: 01/10/21 16:48 Dose: 2.5 ml Documented by: EZIO Labs: Laboratory Tests 01/10/21 01/10/21 01/10/21 Range/Units 16:11 16:40 16:40 WBC 7.51 (4.0-11.0) K/uL RBC 5.43 (4.50-5.90) M/uL Hgb 15.9 (13.0-17.0) g/dL Hct 45.6 (38.0-50.0) % MCV 84.0 (80.0-98.0) fL MCH 29.3 (27.0-32.0) pg MCHC 34.9 (31.0-37.0) g/dL RDW Std Deviation 39.7 (28.0-62.0) fl RDW Coeff of Mike 13 (11.0-15.0) % Plt Count 326 (150-400) K/uL MPV 9.10 (7.40-12.00) fL Neut % (Auto) 55.9 (48.0-80.0) % Lymph % (Auto) 33.6 (16.0-40.0) % [place] % (Auto) 7.2 (0.0-15.0) % Eos % (Auto) 2.9 (0.0-7.0) % Baso % (Auto) 0.4 (0.0-1.5) % Neut # (Auto) 4.2 (1.4-5.7) K/uL Lymph # (Auto) 2.5 H (0.6-2.4) K/uL [place] # (Auto) 0.5 (0.0-0.8) K/uL Eos # (Auto) 0.2 (0.0-0.7) K/uL Baso # (Auto) 0.0 (0.0-0.1) K/uL Sodium 138 (136-148) mmol/L Potassium 3.9 (3.5-5.1) mmol/L Chloride 102 (98-107) mmol/L Carbon Dioxide 22.8 (21.0-32.0) mmol/L BUN 6 L (7.0-18.0) mg/dL Creatinine 0.9 (0.8-1.3) mg/dL Est Cr Clr Drug Dosing 122.44 mL/min Estimated GFR (MDRD) > 60.0 ml/min Glucose 104 (74-106) mg/dL Calcium 8.7 (8.5-10.1) mg/dL Total Bilirubin 0.3 (0.2-1.0) mg/dL AST 20 (15-37) IU/L ALT 31 (14-63) IU/L Alkaline Phosphatase 98 (46-116) U/L Total Protein 7.6 (6.4-8.2) g/dL Albumin 3.7 (3.4-5.0) g/dL Globulin 3.9 (2.6-4.0) g/dL Albumin/Globulin Ratio 0.9 (0.9-1.6) Urine Color YELLOW Urine Appearance CLEAR Urine pH 6.0 (5.0-8.0) Ur Specific [place] 1.015 (1.001-1.035) Urine Protein NEGATIVE (NEGATIVE) mg/dL Urine Glucose (UA) NEGATIVE (NEGATIVE) mg/dL Urine Ketones NEGATIVE (NEGATIVE) mg/dL Urine Occult Blood NEGATIVE (NEGATIVE) Urine Nitrite NEGATIVE (NEGATIVE) Urine Bilirubin NEGATIVE (NEGATIVE) Urine Urobilinogen 0.2 (<2.0) EU/dL Ur Leukocyte Esterase NEGATIVE (NEGATIVE) Meds: Medications Generic Name Dose Route Start Last Admin Trade Name Freq PRN Reason Stop Dose Admin Sodium Chloride 10 ml 01/10/21 16:32 01/10/21 16:48 Sodium Chloride 0.9% 10 Ml Syringe FLUSH 10 ml ASDIRECTED PRN Administration Keep Vein Open Sodium Chloride 2.5 ml 01/10/21 16:32 01/10/21 16:48 Sodium Chloride 0.9% 2.5 Ml Syringe FLUSH 2.5 ml ASDIRECTED PRN Administration Keep Vein Open Departure - Departure Time of Disposition: 18:28 Disposition: Home, Self-Care 01 Condition: Good Clinical Impression: Flank pain, chronic - Discharge Information *PRESCRIPTION DRUG MONITORING PROGRAM REVIEWED*: Not Applicable *COPY OF PRESCRIPTION DRUG MONITORING REPORT IN PATIENT DIETER: Not Applicable Instructions: Flank Pain, Adult, [id number] Referrals: PCP,None [Primary Care Provider] - Forms: ED Department Discharge Additional Instructions: The following information is given to patients seen in the emergency department who are being discharged to home. This information is to outline your options for follow-up care. We provide all patients seen in our emergency department with a follow-up referral. The need for follow-up, as well as the timing and circumstances, are variable depending upon the specifics of your emergency department visit. If you don't have a primary care physician on staff, we will provide you with a referral. We always advise you to contact your personal physician following an emergency department visit to inform them of the circumstance of the visit and for follow-up with them and/or the need for any referrals to a consulting specialist. The emergency department will also refer you to a specialist when appropriate. This referral assures that you have the opportunity for follow-up care with a specialist. All of these measure are taken in an effort to provide you with optimal care, which includes your follow-up. Under all circumstances we always encourage you to contact your private physician who remains a resource for coordinating your care. When calling for follow-up care, please make the office aware that this follow-up is from your recent emergency room visit. If for any reason you are refused follow-up, please contact the [facility] Emergency Department at and asked to speak to the emergency department charge nurse. [facility] - Primary [facility] [address] [place] [id number] [facility] [address] [place] [id number] Plan: 1. You were evaluated today on an emergent basis. Your complaint of bilateral flank pain, chronic constipation, and metal weed pipe insertion into your rectum were evaluated with lab work, imaging and an exam. Your lab work did not show any type of infection. Your kidney function is normal. Your x-ray did not show any foreign body anywhere in your colon. You need to practice healthy bowel habits, such as, eating fiber, drinking fluids, and getting enough exercise. Try not to use laxatives, instead use a fiber additive such as Metamucil. You can use Miralax for chronic constipation two the three times per week. If you continue to have liquid stools with flecks of blood you will need to follow up with a Type Caster for a possible colonoscopy. 2. You can alternate Tylenol and ibuprofen as needed for pain and fever management. 3. We encourage you to follow up with your primary care provider and/or recommended specialist in the next few days for re-evaluation and further care/management. 4. If your symptoms should worsen, new symptoms develop or any of the signs and symptoms we discussed should arise please return to the emergency room or call 911 (if needed). Sepsis Event Note (ED) - Focused Exam Vital Signs: Vital Signs Temp Pulse Resp BP Pulse Ox 01/10/21 18:11 95 16 106/40 L 95 01/10/21 16:17 98.6 F 121 H 18 115/63 97 - My Orders Last 24 Hours: My Active Orders 01/10/21 16:32 Sodium Chloride 0.9% [Saline Flush] 10 ml FLUSH ASDIRECTED PRN Sodium Chloride 0.9% [Saline Flush] 2.5 ml FLUSH ASDIRECTED PRN Saline Lock Insert [OM.PC] Stat 01/10/21 17:38 CHLAMYDIA AND GONORRHEA BY TMA Stat - Assessment/Plan Last 24 Hours: My Active Orders 01/10/21 16:32 Sodium Chloride 0.9% [Saline Flush] 10 ml FLUSH ASDIRECTED PRN Sodium Chloride 0.9% [Saline Flush] 2.5 ml FLUSH ASDIRECTED PRN Saline Lock Insert [OM.PC] Stat 01/10/21 17:38 CHLAMYDIA AND GONORRHEA BY TMA Stat
[2021-01-10] MEDS ORDERED: Sodium Chloride 0.9% 2.5 ML Syringe FLUSH PRN (16:32)
[2021-01-10] MEDS ORDERED: Sodium Chloride 0.9% 10 ML Syringe FLUSH PRN (16:32)
[2021-01-10 17:17] LABS: BLOOD UREA NITROGEN,BUN 6 mg/dL (7.0-18.0); CARBON DIOXIDE,CO2 22.8 mmol/L (21.0-32.0); CHLORIDE,CL 102 mmol/L (98-107); GLUCOSE RANDOM 104 mg/dL (74-106); POTASSIUM,K 3.9 mmol/L (3.5-5.1); SODIUM,NA 138 mmol/L (136-148)
--- NOTE | 2021-01-10 18:04 | CR ---
INDICATION: Possible foreign object in rectum. COMPARISON: None. TECHNIQUE: Abdomen, 4 views. FINDINGS: Nonobstructive bowel gas pattern. Moderate amount of stool throughout the colon. No gas is seen in the rectum. No pneumatosis. No free air on upright view. Mm is clear. The bones are unremarkable. Pelvic phleboliths. No radiopaque foreign body identified. IMPRESSION: 1. Nonobstructive bowel gas pattern. No gas is seen in the rectum. 2. No radiopaque foreign body identified. Dictated by Ester Lozada MD @ Jan 10 2021 6:00PM Signed by Dr. Ester Lozada @ Jan 10 2021 6:03PM
[2021-01-10 18:12] VITALS: BP 106/40
[2021-01-10 18:38] VITALS: PULSE 89
[2021-01-14 12:07] LABS: C.TRACHOMATIS BY TMA Negative (Negative); N.GONORRHOEAE BY TMA Negative (Negative)
== END 2021-01-10 18:38 | disposition home or self-care (01) ==
LOC: MW.ED 15:56
DX: R10.9 Unspecified abdominal pain (principal); G89.29 Other chronic pain; Z88.6 Allergy status to analgesic agent
CPT/HCPCS: 36415; 74019; 74019-26; 80053; 81003; 85025; 87491; 87591; 99283; 99284-25

== ENCOUNTER 2021-05-30 20:58 | Emergency (ER) | payer SELFPAY ==
[2021-05-30] MEDS ORDERED: Rabies Vaccine, Human Diploid Cell PF 2.5 Unit SDV IM ONE (23:46)
[2021-05-30] MEDS ORDERED: Amoxicillin/Clavulanate K 875-125 MG Tab PO ONE (23:47)
[2021-05-30] MEDS ORDERED: Diphtheria,Pertussis(Acell),Tetanus Vaccine 0.5 ML Syringe IM ONE (23:47)
[2021-05-30] MEDS ORDERED: Rabies Immune Globulin PF 150 Units/ML 2 ML SDV IM ONE (23:48)
[2021-05-30] MEDS ORDERED: Bacitracin Oint 1 GM U/D Packet TOP ONE (23:50)
--- NOTE | 2021-05-31 01:20 | EDM.PDOC ---
ED HPI GENERAL MEDICAL PROBLEM - General Chief Complaint: Bite:Animal, Insect Stated Complaint: DOG BITE ON RT ARM Time Seen by Provider: 05/30/21 23:43 - History of Present Illness INITIAL COMMENTS - FREE TEXT/NARRATIVE: HISTORY AND PHYSICAL: History of present illness: This is a 26-year-old gentleman who presents ER today secondary to being assaulted by a stray dog while he was going for a walk prior to arrival. Patient reports that he was attacked by a dog that has no collar and has no known insurance agency owner. He reports he has not seen his dog in the past. He reports that he was walking his usual path when he got attacked. He reports it was an unprovoked attack. He reports that the injury occurred to his right upper extremity and was isolated to his arm. Patient has no other injuries identified. Patient's tetanus status is greater than 5 years. Patient has not had rabies vaccinations in the past. Patient is allergic to ibuprofen. Patient reports he does have tobacco, no alcohol or drugs. Patient denies any other symptomatology. Patient has any recent fevers, shakes, chills, nausea, vomiting, diarrhea. Review of systems: As per history of present illness and below otherwise all systems reviewed and negative. Past medical history: As per history of present illness and as reviewed below otherwise noncontributory. Surgical history: As per history of present illness and as reviewed below otherwise noncon tributory. Social history: No reported history of drug abuse. Family history: As per history of present illness and as reviewed below otherwise noncontributory. Physical exam: This patient was seen and evaluated during the 2019 SARS-CoV-2 novel coronavirus pandemic period. Community viral transmission is ongoing at time of this encounter and the emergency department is operating under pandemic response procedures. Constitutional: Patient is oriented to person, place, and time. Appears well- developed and well-nourished. No distress. HEENT: Moist mucous membranes Head: Normocephalic and atraumatic Eyes: Right eye exhibits no discharge. Left eye exhibits no discharge. No scleral icterus Neck: Normal range of motion. No tracheal deviation present. Cardiovascular: Normal rate and regular rhythm. Pulmonary: Effort normal, no respiratory distress. Abdominal: No distention Musculoskeletal: Normal range of motion Neurologic: Alert and oriented to person, place and time. Skin: [place], warm and dry. Psychiatric: Normal mood and affect. Behavior is normal. Judgment and thought content normal. Nursing note and vital signs have been reviewed Patient's ER physical exam is significant for multiple small less than 1 cm puncture wounds to his right upper extremity without any evidence of neurovascular deficit. Patient sensation is intact. Patient has good flexion extension of his wrist thumb fingers and hand. Diagnostics: [] Therapeutics: Tdap 0.5 IM Rabies vaccine IM Rabies immunoglobulin IM Augmentin Assessment and plan: 26-year-old gentleman who presents ER today secondary to being attacked by a dog with unknown rabies vaccination status. Given that this was an unprovoked attack, the patient will need to get initiated on rabies vaccinations here in e ED. Patient was given the vaccine as well as immunoglobulin and will be instructed to return for the scheduled vaccination. Patient will be started on Augmentin. At this time, I do not believe that suturing would be beneficial and could be harmful given the increased risk of infection with small puncture wounds. Neosporin will be applied. The wound will be irrigated by the nurse copiously. Patient will need a wound check in 2 days by his primary care physician or back in the ED if he is unable to be seen by his primary care physician. Reassessment at the time of disposition demonstrates that the patient is in no acute distress. The patient has remained stable throughout the entire ED visit and is without objective evidence for acute process requiring urgent intervention or hospitalization. The patient is stable for discharge, counseling is provided as documented above, discussed symptomatic treatment and specific conditions for return. I have spoken with the patient/caregiver and discussed todays findings, in addition to providing specific details for the plan of care. Questions are answered and there is agreement with the plan. Definitive disposition and diagnosis as appropriate pending reevaluation and review of above. right arm Pain Score (Numeric/FACES): 7 - Related Data Allergies Allergy/AdvReac Type Severity Reaction Status Date / Time ibuprofen Allergy Hives Verified 05/30/21 23:35 Home Meds: Home Meds Amoxicillin/Clavulanate K [Augmentin 875-125 MG] 1 tab PO Q12HR 10 Days #20 tab 05/31/21 [Rx] Past Medical History - Past Health History Medical/Surgical History: Denies Medical/Surgical History HEENT History: Reports: Other (See Below) Other HEENT History: missing teeth Cardiovascular History: Reports: None Respiratory History: Reports: None Gastrointestinal History: Reports: None Genitourinary History: Reports: None Musculoskeletal History: Reports: Other (See Below) Other Musculoskeletal History: phocomelia left arm Neurological History: Reports: None Psychiatric History: Reports: Addiction, Anxiety, Bipolar, Suicidal Ideation, Other (See Below) Other Psychiatric History: sleeping problems, cutting Endocrine/Metabolic History: Reports: None Hematologic History: Reports: None Immunologic History: Reports: None Oncologic (Cancer) History: Reports: None Dermatologic History: Reports: None - Infectious Disease History Infectious Disease History: Reports: Chicken Pox Social & Family History - Family History Family Medical History: No Pertinent Family History - Caffeine Use Caffeine Use: Reports: None - Recreational Drug Use Recreational Drug Use: No ED ROS GENERAL - Review of Systems Review Of Systems: See Below ED EXAM, ANIMAL BITE - Physical Exam Exam: See Below Course - Vital Signs Last Recorded V/S: Last Vital Signs Temp 97 F 05/30/21 23:35 Pulse 78 05/30/21 23:35 Resp 18 05/30/21 23:35 BP 98/69 05/30/21 23:35 Pulse Ox 97 05/30/21 23:35 - Orders/Labs/Meds Orders: Active Orders 24 hr Category Date Time Status Vaccines to be Administered [RC] PER UNIT ROUTINE Care 05/30/21 23:47 Active Vaccines to be Administered [RC] PER UNIT ROUTINE Care 05/30/21 23:47 Active Vaccines to be Administered [RC] PER UNIT ROUTINE Care 05/30/21 23:49 Active Rabies Immune Globulin PF [Imogam Rabies-HT] Med 05/30/21 23:48 Pending 1,440 unit IM .ONCE ONE Medication Orders Rabies Immune Globulin (Rabies Immune Globulin Pf 150 Units/Ml 2 Ml Sdv) 1,440 unit IM .ONCE ONE Stop: 05/30/21 23:49 Meds: Medications Generic Name Dose Route Start Last Admin Trade Name Freq PRN Reason Stop Dose Admin Rabies Immune Globulin 1,440 unit 05/30/21 23:48 Rabies Immune Globulin Pf 150 Units/Ml 2 Ml Sdv IM 05/30/21 23:49 .ONCE ONE Discontinued Medications Generic Name Dose Route Start Last Admin Trade Name Freq PRN Reason Stop Dose Admin Amoxicillin/Clavulanate Potassium 1 tab 05/30/21 23:47 05/31/21 00:25 Amoxicillin/Clavulanate K 875-125 Mg Tab PO 05/30/21 23:48 1 tab ONETIME ONE Administration Bacitracin 4 dose 05/30/21 23:50 05/31/21 00:25 Bacitracin Oint 1 Gm U/D Packet TOP 05/30/21 23:51 4 dose ONETIME ONE Administration Diphtheria/Tetanus/Acell Pertussis 0.5 ml 05/30/21 23:47 05/31/21 00:26 Diphtheria,Pertussis(Acell),Tetanus Vaccine 0.5 Ml Syringe IM 05/30/21 23:48 0.5 ml .ONCE ONE Administration Rabies Vaccine Human Diploid Cell 2.5 unit 05/30/21 23:46 05/31/21 00:27 Rabies Vaccine, Human Diploid Cell Pf 2.5 Unit Sdv IM 05/30/21 23:47 2.5 unit .ONCE ONE Administration Departure - Departure Time of Disposition: 01:17 Disposition: Home, Self-Care 01 Condition: Good Clinical Impression: Dog bite of multiple sites of right upper arm Qualifiers: Encounter type: initial encounter Qualified Code(s): S41.151A - Open bite of right upper arm, initial encounter; W54.0XXA - Bitten by dog, initial encounter - Discharge Information Instructions: Animal Bite, Adult, [id number], VIS, Rabies - CDC (10/04/2019) Referrals: PCP,None [Primary Care Provider] - Additional Instructions: You were seen and evaluated in the ER today secondary to being assaulted in bed by a stray dog. You will get started on your rabies vaccination schedule. You received your first dose here in the ED today. You will need to return on day #3, day #7, and day #14 for your subsequent vaccination shots. You have also been given a tetanus shot here in the ED today. You will also get started on an antibiotic called Augmentin 875 twice a day for 10 days. Please return to the ER immediately if you start seeing any signs or any concerns regarding infection of your wound. You will need to see your family doctor in 2 days to get a wound check to make sure that there is no infection developing as dog bites have an increasingly high risk of infection. If you are unable to see your family doctor, please return to the ER so that we can evaluate you make sure there is no infection that is developing. The following information is given to patients seen in the emergency department who are being discharged to home. This information is to outline your options for follow-up care. We provide all patients seen in our emergency department with a follow-up referral. The need for follow-up, as well as the timing and circumstances, are variable depending upon the specifics of your emergency department visit. If you don't have a primary care physician on staff, we will provide you with a referral. We always advise you to contact your personal physician following an emergency department visit to inform them of the circumstance of the visit and for follow-up with them and/or the need for any referrals to a consulting specialist. The emergency department will also refer you to a specialist when appropriate. This referral assures that you have the opportunity for follow-up care with a specialist. All of these measure are taken in an effort to provide you with optimal care, which includes your follow-up. Under all circumstances we always encourage you to contact your private physician who remains a resource for coordinating your care. When calling for follow-up care, please make the office aware that this follow-up is from your recent emergency room visit. If for any reason you are refused follow-up, please contact the [facility] Emergency Department at and asked to speak to the emergency department charge nurse. [facility] - Primary Care [address] [place] [address] [place] [address] Sepsis Event Note (ED) - Focused Exam Vital Signs: Vital Signs Temp Pulse Resp BP Pulse Ox 05/30/21 23:35 97 F 78 18 98/69 97 - My Orders Last 24 Hours: My Active Orders 05/30/21 23:47 Vaccines to be Administered [RC] PER UNIT ROUTINE Vaccines to be Administered [RC] PER UNIT ROUTINE 05/30/21 23:48 Rabies Immune Globulin PF [Imogam Rabies-HT] 1,440 unit IM .ONCE ONE 05/30/21 23:49 Vaccines to be Administered [RC] PER UNIT ROUTINE - Assessment/Plan Last 24 Hours: My Active Orders 05/30/21 23:47 Vaccines to be Administered [RC] PER UNIT ROUTINE Vaccines to be Administered [RC] PER UNIT ROUTINE 05/30/21 23:48 Rabies Immune Globulin PF [Imoga Rabies-HT] 1,440 unit IM .ONCE ONE 05/30/21 23:49 Vaccines to be Administered [RC] PER UNIT ROUTINE
[2021-05-31 01:34] VITALS: BP 105/62; PULSE 87
== END 2021-05-31 01:30 | disposition home or self-care (01) ==
LOC: MW.ED 20:58
DX: S41.151A Open bite of right upper arm, initial encounter (principal); Z88.8 Allergy status to other drugs, medicaments and biological substances; Z23 Encounter for immunization; W54.0XXA Bitten by dog, initial encounter
CPT/HCPCS: 90376; 90471; 90675; 90715; 96372; 99283; A9270

== ENCOUNTER 2022-06-30 16:00 | Emergency (ER) | payer SELFPAY | END 2022-06-30 20:00 | disposition left against medical advice (07) | LOC: MW.ED 16:00 | DX: Z53.21 Procedure and treatment not carried out due to patient leaving prior to being seen by health care provider (principal) ==

== ENCOUNTER 2023-03-23 10:39 | Emergency (ER) | payer SELFPAY ==
[2023-03-23 10:52] VITALS: BP 120/70; PULSE 85
[2023-03-23] MEDS ORDERED: Ibuprofen 600 MG Tab PO ONE (10:55)
[2023-03-23] MEDS ORDERED: Amoxicillin/Clavulanate K 875-125 MG Tab PO ONE (10:59)
== END 2023-03-23 11:41 | disposition home or self-care (01) ==
LOC: MW.ED 10:39
DX: S51.851A Open bite of right forearm, initial encounter (principal); W54.0XXA Bitten by dog, initial encounter
CPT/HCPCS: 12002; 99283; A9270

== ENCOUNTER 2023-04-01 21:43 | Emergency (ER) | payer SELFPAY | END 2023-04-01 22:30 | disposition left against medical advice (07) | LOC: MW.ED 21:43 | DX: Z53.21 Procedure and treatment not carried out due to patient leaving prior to being seen by health care provider (principal) ==

== ENCOUNTER 2024-11-11 16:16 | Emergency (ER) | payer MEDICAID ==
[2024-11-11 16:54] LABS: BASOPHILS ABSOLUTE AUTO 0.06 K/uL (0.00-0.20); BASOPHILS PERCENT AUTO 0.6 % (0.0-1.0); EOSINOPHILS ABSOLUTE AUTO 0.13 K/uL (0.00-0.45); EOSINOPHILS PERCENT AUTO 1.4 % (0.0-6.0); HEMATOCRIT 45.1 % (42.0-52.0); HEMOGLOBIN 15.5 g/dL (14.0-18.0); IMMATURE GRAN ABSOLUTE AUTO 0.02 K/uL (0.00-0.05); IMMATURE GRAN PERCENT AUTO 0.2 % (0.0-0.4); LYMPHOCYTES ABSOLUTE AUTO 1.39 K/uL (1.00-4.80); LYMPHOCYTES PERCENT AUTO 14.8 % (24.0-44.0); MEAN CORPUSCULAR HEMOGLOBIN 29.1 pg (28.0-32.0); MEAN CORPUSCULAR HGB CONC 34.4 g/dL (32.0-36.0); MEAN CORPUSCULAR VOLUME 84.6 fL (83.0-99.0); MONOCYTES ABSOLUTE AUTO 0.32 K/uL (0.00-0.80); MONOCYTES PERCENT AUTO 3.4 % (0.0-8.0); NEUTROPHILS PERCENT AUTO 79.6 % (41.0-71.0); PLATELET COUNT,PLT 273 K/uL (150-400); RED BLOOD CELL COUNT 5.33 M/uL (4.52-5.90); WHITE BLOOD CELL COUNT,WBC 9.42 K/uL (3.9-11.3)
[2024-11-11 17:05] LABS: A/G RATIO 1.3 (0.9-1.6); ALANINE AMINOTRANSFERASE,ALT 19 IU/L (14-63); ALBUMIN 4.2 g/dL (3.4-5.0); ALKALINE PHOSPHATASE 67 U/L (46-116); ASPARTATE AMNIOTRANSFERASE,AST 16 IU/L (15-37); BILIRUBIN TOTAL 0.3 mg/dL (0.2-1.0); BLOOD UREA NITROGEN,BUN 15 mg/dL (7.0-18.0); CARBON DIOXIDE,CO2 23.1 mmol/L (21.0-32.0); CHLORIDE,CL 103 mmol/L (98-107); GLUCOSE RANDOM 94 mg/dL (74-106); PROTEIN TOTAL,TP 7.5 g/dL (6.4-8.2); SODIUM,NA 139 mmol/L (136-148)
[2024-11-11 17:06] LABS: ESTIMATED GFR 105 mL/min (>60)
[2024-11-11 17:17] VITALS: BP 125/75; PULSE 96
[2024-11-11 22:05] LABS: APPEARANCE,URINE CLEAR; BILIRUBIN,URINE NEGATIVE (NEGATIVE); COLOR,URINE YELLOW; GLUCOSE,URINE NEGATIVE (NEGATIVE); KETONES,URINE NEGATIVE (NEGATIVE); LEUKOCYTE ESTERASE,URINE NEGATIVE (NEGATIVE); NITRITE,URINE NEGATIVE (NEGATIVE); OCCULT BLOOD,URINE NEGATIVE (NEGATIVE); PH,URINE 6.5 (5.0-8.0); PROTEIN,URINE NEGATIVE (NEGATIVE); UROBILINOGEN,URINE 0.2 EU/dL (<2.0)
== END 2024-11-11 22:20 | disposition home or self-care (01) ==
LOC: MW.ED 16:16
DX: Z02.89 Encounter for other administrative examinations (principal); R10.9 Unspecified abdominal pain; Z75.8 Other problems related to medical facilities and other health care
CPT/HCPCS: 36415; 80053; 81003; 85025; 93005; 93010; 99283; 99284

== ENCOUNTER 2024-11-17 10:50 | Emergency (ER) | payer SELFPAY ==
[2024-11-17] MEDS: Ibuprofen 800 MG Tab PO STA (12:00)
[2024-11-17] MEDS: Orphenadrine 60 MG/2 ML Inj IM STA (13:05)
[2024-11-17 13:12] VITALS: BP 138/82; PULSE 98
== END 2024-11-17 13:12 | disposition home or self-care (01) ==
LOC: MW.ED 10:50
DX: Q71.892 Other reduction defects of left upper limb (principal); Z75.8 Other problems related to medical facilities and other health care; Z79.899 Other long term (current) drug therapy
CPT/HCPCS: 73080; 96372; 99283; A9270; J2360